=== PATIENT | female | born 1975 | race Two or more races ===

== ENCOUNTER 2023-05-14 09:37 | Emergency (ER) | payer MEDICAID, OTHER ==
[~2023-05-14] VITALS: Ht 154.9 cm; Wt 75.0 kg
[2023-05-14 10:11] LABS: Basophils # (auto) 0 10 ^3/uL (0-0.2); Basophils % (auto) 0.3 % (0.0-2.0); Eosinophils # (auto) 0.1 10 ^3/uL (0-0.8); Eosinophils % (auto) 1.1 % (0.0-7.0); Hematocrit 41.3 % (36.0-46.0); Hemoglobin 14.3 g/dL (12.2-16.2); Lymphocytes # (auto) 2.9 10 ^3/uL (0.4-5.4); Lymphocytes % (auto) 32.2 % (10.0-50.0); Mean Corpuscular Hemoglobin 33.5 pg (28.0-32.0); Mean Corpuscular Hgb Conc. 34.5 g/dL (32.0-36.0); Monocytes # (auto) 0.6 10 ^3/uL (0-1.3); Monocytes % (auto) 6.5 % (0.0-12.0); Neutrophils # (auto) 5.4 10 ^3/uL (1.6-8.6); Neutrophils % (auto) 59.9 % (37.0-80.0); Red Blood Cells 4.25 10^6/uL (4.0-5.20); Red Cell Distribution Width 12.2 % (11.8-14.3)
[2023-05-14 10:17] LABS: Urine Bacteria FEW /hpf (None Seen); Urine Blood Negative /uL (Negative); Urine Clarity Clear (Clear); Urine Protein, UAD Negative (Negative); Urine Urobilinogen Normal (Negative); Urine WBC 1 /hpf (0 - 5)
[2023-05-14 10:19] LABS: Urine Color Yellow (Yellow)
[2023-05-14 10:25] VITALS: BP 98/64; RESP 16; TEMP 97.6; O2SAT 100
[2023-05-14 10:34] LABS: Alanine Aminotransferase 33 U/L (7-40); Albumin 4.8 g/dL (3.2-4.8); Alkaline Phosphatase 102 U/L (46-116); Anion Gap 10 (5-15); Aspartate Aminotransferase 29 U/L (13-40); BUN/Creatinine Ratio 10.5 (10.0-20.0); Blood Urea Nitrogen 10 mg/dL (9-23); Calcium 10.6 mg/dL (8.5-10.1); Carbon Dioxide 24 mmol/L (20-30); Chloride 105 mmol/L (98-107); Glucose 111 mg/dL (74-106); Potassium 3.9 mmol/L (3.5-5.1); Sodium 139 mmol/L (136-145)
[2023-05-14 10:35] LABS: Bilirubin, Total 0.6 mg/dL (0.2-1.0); Total Protein 7.3 g/dL (5.7-8.2)
[2023-05-14] MEDS: ONDANSETRON ODT 4 MG TAB PO ONE (10:39)
[2023-05-14] MEDS: LORazepam 0.5 MG TAB PO ONE (10:46)
[2023-05-14 10:56] VITALS: PULSE 79
[2023-05-14] MEDS ORDERED: IBUP-1456 PO (11:29)
[2023-05-14] MEDS ORDERED: HYDR50CA PO (11:29)
== END 2023-05-14 11:34 | disposition home or self-care (01) ==
LOC: ER 09:37
DX: M54.12 Radiculopathy, cervical region (principal); R10.2 Pelvic and perineal pain; F41.8 Other specified anxiety disorders
CPT/HCPCS: 36415; 72040; 80053; 81001; 81025; 84484; 84702; 85025; 93005; 99285; J7030; Q0162